=== PATIENT | male | born 1985 | race Caucasian/White ===

== ENCOUNTER 2025-03-06 13:26 | Emergency (ER) | payer OTHER, SELFPAY ==
[2025-03-06 13:28] VITALS: BP 132/74
--- NOTE | 2025-03-06 13:56 | ED TECH ---
Went into pt room after report that pts was refusing to get pt changed into paper scrubs. This PCT went in and explained the importance of getting pt changed for staff and pt safety. pt repeated multiple times 'its just gonna make it
worse, he is already anxious' and followed with 'he is not going to hurt you, you're fine.' After stating the hospital policy and reasons for pt safety/ staff safety again, the was agreeable to getting pt changed. This PCT stepped out of the
room while assisted pt in getting changed. this pct bagged up all pt belongs and placed them outside with Ren the 1:1 sitter at this time.
--- NOTE | 2025-03-06 14:13 | ED.GENMED ---
History of Present Illness
General
Chief Complaint: Crisis Evaluation
Source: patient
Exam Limitations: none
Time Seen by Provider: 03/06/25 13:44
Nursing documentation reviewed up to this point in time: agreed with
History of Present Illness
History of Present Illness:
Patient is a 39-year-old male presenting to the ER for evaluation. Patient was brought to the ER by . Patient reports he has history of longstanding history of depression suicidal attempts in the past and drug abuse. He had a plan for suicide
attempt around 10 days ago. He was sober for 2 years but had a relapse and admits to using cocaine 2 weeks ago. He does have a history of IV drug abuse and has used IV heroin in the past. Since Labor Day he has felt depressed suicidal.
He is on Wellbutrin and Abilify.
He does have an outpatient therapist
His last inpatient hospitalization was 14 years ago.
Past History
Past History
ED Past Medical History: None and Psychiatric
ED Past Surgical History: None
Social History
Tobacco: Smoker
Alcohol: None
Drug: Former user, Narcotics and IVDA
Living: alone
Phy Exam
General Physical Exam
General Presentation: no apparent distress
General age: appears stated age
General Skin: warm and dry
General Habitus: normal
General Mental: alert
General Hydration: appears well hydrated
Cardiovascular Exam
Cardiovascular Exam: regular rate/rhythm, no murmur and normal peripheral pulses
Pulmonary Exam
Pulmonary Exam: lungs clear and no respiratory distress
Neurological Exam
Neurological Exam: alert and oriented x3
Musculoskeletal Exam
Musculoskeletal Exam: full ROM and other (chronic scarring to b/l arms ( pt admits to previous drug injections ) )
Skin Exam
Skin Exam: normal color and warm/dry
Psychiatric Exam
Psychiatric Exam: normal mood/affect
Course
Orders/Labs/Results
Orders:
Orders
03/06/25 13:35
1:1 Observation - Suicide/ Violent Behavior As Directed
03/06/25 14:11
Crisis Consult Urgent
Reason for Consult: suifical ideation
03/06/25 14:38
Fentanyl, Urine Urgent
Urine Drug Abuse Screen Urgent
Date Specimen was Collected: 03/06/25
Time Specimen was Collected: 14:24
03/06/25 14:51
Complete Blood Count/With Diff Urgent
03/06/25 18:05
Acetaminophen Urgent
Alcohol Urgent
Comprehensive Metabolic Panel Urgent
Salicylate Urgent
Abnormal Lab Results
03/06/25 03/06/25 03/06/25
14:38 14:51 18:05
WBC 4.7 L 10^3/uL
(4.8-10.8)
Glucose 101 H mg/dl
(70-99)
Salicylates < 1.0 L mg/dl
(2.0-20.0)
Urine Methadone Screen Positive H
(Negative)
Acetaminophen < 10 L ug/ml
(10-30)
03/06/25 14:51
03/06/25 18:05
Vital Signs
Initial and Last Documented VS:
Initial Vital Signs
Temp Pulse Resp BP Pulse Ox
98.2 F 62 16 132/74 98
03/06/25 13:28 03/06/25 13:28 03/06/25 13:28 03/06/25 13:28 03/06/25 13:28
Last Documented Vital Signs
Temp Pulse Resp BP Pulse Ox
98.1 F 59 16 114/66 96
03/06/25 16:40 03/06/25 16:40 03/06/25 16:40 03/06/25 16:40 03/06/25 16:40
MDM/Problems Addressed
Differential Diagnosis Includes:
Not limited to substance abuse depression suicidal ideation
MDM/Problems Addressed:
As documented patient is a 39-year-old male with history of significant depression, suicide attempt in the past suicidal ideation. Patient with recent plan for suicide attempt over the past several weeks willing to seek help. He does have also
substance abuse history of IV drug abuse. Patient was evaluated by crisis he is awake alert and cooperative here in the ER.
Plan for transfer to psych facility awaiting acceptance .
Chronic conditions affecting care:
Depression suicidal attempts drug abuse
*Pulse Oximetry
SaO2: 98
Oxygen Mode of Delivery: Room air
Patient hypoxic: no
*Critical Care Note
Total Time (30-74mins, 75-104mins- exclusive of procedures): Not Applicable
ED Attending Note
-
Portions of this chart may have been created with voice recognition software.� Occasional wrong word or��sound alike� substitutions may have occurred due to the inherent limitations of voice recognition software.
Discharge Plan
Departure
Patient Disposition: Psych Facility
Date of Disposition: 03/06/25
Time of Disposition: 16:48
Patient with high blood pressure during this ER visit?: Yes
Condition: Fair
Covid-19: Not Applicable
Discharge Problem:
Suicidal ideation
Prescriptions:
No Action
amoxicillin-pot clavulanate 1 TABLET tablet
1 tab PO Q12 Qty: 19 0RF
rabies vacc,human diploid (PF) [Imovax Rabies Vaccine (PF)] 1 ML recon soln
1 ml IM DAILY Qty: 3 0RF
Rx Instructions:
Administer IM injections on 12/15/12(day 3), 12/19/2012(day 7) and 12/26/2012(day 14)
rabies vacc,human diploid (PF) [Imovax Rabies Vaccine (PF)] 1 ML recon soln
1 ml IM DAILY Qty: 2 0RF
Rx Instructions:
Administer on 12/20/2012 and 12/27/2012
methadone [Methadose] 100 MG/10 ML concentrate
125 mg PO DAILY
fluoxetine 20 MG capsule
40 mg PO DAILY
lamotrigine [Lamictal XR] 100 MG tablet extended release 24hr
100 mg PO DAILY
penicillin V potassium 500 MG tablet
500 mg PO Q6 Qty: 40 0RF
Referrals:
Oliverio Harrington MD [Family Provider, Family Practice]
Interventions
Interventions:
*Risk Screen - Suicide Last Done: 03/06/25 14:20
*Neglect/Abuse Screening Last Done: 03/06/25 16:00
*ED- Fall Risk Assessment Last Done: 03/06/25 14:58
*ED COVID-19 Vaccine History Last Done: 03/06/25 14:58
*Nursing Disposition Last Done: 03/06/25 19:59
ED-Psychological Assessment Last Done: 03/06/25 14:20
Discharge Date and Time
Print Language: ERITREAN
[2025-03-06 15:15] LABS: Hematocrit 44.3 % (39.0-52.0); Hemoglobin 15.0 g/dL (13.0-18.0); Mean Corp Hgb Conc. 33.9 g/dL (33.0-37.0); Mean Corpuscular Volume 89.3 fL (80.0-94.0); Nucleated Red Blood Cells % 0 % (-); Platelet Count 267 10^3/uL (130-400); Red Cell Dist. Width 12.6 % (11.5-14.5)
--- NOTE | 2025-03-06 16:00 | EDRN ---
group care worker Shyanne in room talking w/ pt at this time.
--- NOTE | 2025-03-06 16:30 | EDRN ---
Spouse in room w/ pt at this time. Pt crying.
[2025-03-06 16:40] VITALS: BP 114/66
--- NOTE | 2025-03-06 17:00 | EDRN ---
Rossy LEAL ordered supper for pt at this time,
--- NOTE | 2025-03-06 18:00 | EDRN ---
workers compensation attorney Shyanne informed me that pt is accepted [facility] at this time. Shyanne discussed this w/ pt at this time.
--- NOTE | 2025-03-06 18:05 | EDRN ---
Rossy pozo ordered labs/SST tube that was hemolyzed per lab.
--- NOTE | 2025-03-06 18:10 | EDRN ---
Pt received supper tray at this time. Spouse still in room w/ pt.
[2025-03-06 18:25] LABS: ALT (SGPT) 16 U/L (0-50); AST (SGOT) 22 U/L (17-59); Albumin 4.3 g/dl (3.5-5.0); Alkaline Phosphatase 61 U/L (38-126); Blood Urea Nitrogen 11 mg/dl (9-20); Calcium 8.8 mg/dl (8.4-10.2); Carbon Dioxide 29 mmol/L (22-30); Chloride 103 mmol/L (98-107); Glucose 101 mg/dl (70-99); Potassium 3.9 mmol/L (3.5-5.1); Sodium 138 mmol/L (135-145); Total Protein 7.3 g/dl (6.3-8.2); eGFR > 60.00
[2025-03-06 18:31] LABS: Acetaminophen < 10 ug/ml (10-30); Salicylate < 1.0 mg/dl (2.0-20.0)
--- NOTE | 2025-03-06 18:45 | EDRN ---
Pt is scheduled to go to [place] [facility] facility via [facility] at 20:30.
== END 2025-03-06 19:59 ==
LOC: EMR 13:26
PROVIDERS: Nurse Practitioner; EMERGENCY PHYSICIAN Student in an Organized Health Care Education/Training Program; FAMILY PHYSICIAN Family Medicine
DX: R45.851 Suicidal ideations (principal); F32.A Depression, unspecified; F17.200 Nicotine dependence, unspecified, uncomplicated; F19.10 Other psychoactive substance abuse, uncomplicated; Z91.51 Personal history of suicidal behavior
CPT/HCPCS: 99285; 80053; 80143; 80179; 80306; 80307; 82077; 85025